=== PATIENT | female | born 1935 | race Caucasian/White ===

== ENCOUNTER 2016-05-16 14:37 | Inpatient (IN) ==
--- NOTE | 2016-05-16 15:15 | Emergency Department Note ---
Altered Mental Status HPI - General Chief Complaint: Altered Mental Status Stated Complaint: altered loc Time Seen by Provider: 05/16/16 14:59 Source: patient Mode of arrival: wheelchair Limitations: no limitations - History of Present Illness HPI Narrative: Brought in by son from home. 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 Did not answer the phone, son came and found her weak, unable to walk, altered mental status. Patient requested her usual daytime pills, and was given her chronic pain medications. Nothing out of the ordinary at home. No specific complaint. Was well on Monday when she was last seen. currently being cared for by wound, long laceration left leg; chronic edema of the legs reported Review of systems, patient denies fevers, denies shortness of breath or cough, denies abdominal complaints. Limited review of systems son is power of assistant prosecuting attorney; no advance directives - Related Data Home Medications Medication Instructions Recorded Confirmed Thyroid,Pork [[place] Thyroid] 180 mg PO ACB 01/23/16 04/29/16 Previous Rx's Medication Instructions Recorded Tums 300 mg (750 mg) chewable 300 mg PO TID PRN #30 tab NS 02/01/16 tablet polyethylene glycol 3350 17 gram 17 g PO QDAY #30 each 02/01/16 oral powder packet compression stocking,thigh See Dose Instructions .ROUTE 03/03/16 high,long length,large .MEDSUPPLY #2 each carisoprodol 350 mg tablet 350 mg PO TID PRN #90 tab 03/22/16 predniSONE [Prednisone] 10 mg PO DAILY #34 tab 04/08/16 albuterol sulfate HFA 90 2 puff INHALATION Q4-6HP PRN #1 04/18/16 mcg/actuation aerosol inhaler inhaler hydrocodone 7.5 mg-acetaminophen 1 tab PO Q4-6HP PRN #120 tab 05/10/16 325 mg tablet morphine ER 60 mg tablet,extended 60 mg PO Q8H PRN #75 tab 05/10/16 release furosemide 20 mg tablet 20 mg PO QDAY #30 tab 05/12/16 potassium chloride ER 20 mEq 20 meq PO QDAY #30 tab 05/12/16 tablet,extended release(part/cryst) Allergies Allergy/AdvReac Type Severity Reaction Status Date / Time tramadol [From ULTRAM] Allergy Intermediate HIVES Verified 12/30/16 15:55 mirtazapine [From REMERON] Allergy Mild JITTERY Verified 04/29/16 15:55 nicotine Allergy Unknown Hives Verified 04/29/16 15:55 ciprofloxacin [From Cipro] AdvReac Intermediate Unknown Verified 04/29/16 15:55 Review of Systems Limitations: ROS unobtainable due to patients medical condition Past Medical History - Past Medical History Attestation: Yes: The following information was validated with the patient. Medical history: Reports: arthritis, COPD, thyroid disease, other ( back pain, kyphosis, scoliosis, hx lumbar fracture, pelvic fracture) Surgical history ED: Reports: cholecystectomy Family history: Reports: non-contributory - Social History smoking status: Former smoker Alcohol use: Reports: Occasionally Drug use: Reports: none Physical Exam - General Limitations: no limitations General appearance: lethargic, other (thin, appears older than stated age) - Head Head exam: atraumatic - Eye Eye exam: Present: normal appearance - ENT ENT exam: mucous membranes dry - Neck Neck exam: Present: normal inspection. Absent: lymphadenopathy - Chest Chest inspection: Present: normal inspection - Respiratory Respiratory exam: Present: normal lung sounds bilaterally, other (shallow excursions, no tachypnea). Absent: respiratory distress - Cardiovascular Cardiovascular exam: Present: regular rate, normal rhythm - Abdominal Exam Abdominal exam: Present: soft. Absent: tenderness - Extremities Exam Extremities exam: Present: normal inspection - Back Exam Back exam: Present: normal inspection - Neurological Exam Neurological exam: Absent: alert - Skin Skin exam: Present: warm, dry Course - Reevaluation(s) Reevaluation #1: still profoundly weak, slow to respond; requesting a drink of water Son at the bedside, supportive of admission DNI DNR by discussion with POA, limited intervention Time: 18:20 Vital Signs Temperature 98.8 F 05/16/16 14:37 Pulse Rate 111 H 05/16/16 14:37 Respiratory Rate 26 H 05/16/16 14:37 Blood Pressure 161/103 05/16/16 14:37 Pulse Oximetry (%) 93 05/16/16 14:37 Temperature 99.1 F 05/16/16 16:26 Pulse Rate 107 H 05/16/16 16:56 Respiratory Rate 33 H 05/16/16 16:56 Blood Pressure 140/77 05/16/16 16:56 Pulse Oximetry (%) 94 05/16/16 16:56 Altered Mental Status - Lab Data Lab results reviewed: Yes I reviewed the patient's lab results. Result diagrams: 05/16/16 15:13 05/16/16 15:13 Lab Results 05/16/16 05/16/16 05/16/16 Range/Units 15:13 15:13 15:13 WBC 11.1 H (4.5-11.0) K/mcL RBC 4.40 (4.00-5.20) M/mcL Hgb 13.3 (12.0-15.0) g/dL Hct 40.7 (36.0-48.0) % MCV 92.5 (80.0-100.0) fL MCH 30.2 (26.0-34.0) pg MCHC 32.6 (31.0-36.0) g/dL RDW 16.2 H (11.5-14.5) % Plt Count 435 (140-440) K/mcL MPV 7.5 (7.4-10.4) fL Gran % 87.5 H (38.0-78.0) % Lymph % (Auto) 6.0 L (15.5-49.0) % [place] % (Auto) 6.3 (1.0-9.0) % Eos % (Auto) 0 (0.0-7.0) % Baso % (Auto) 0.2 (0.0-2.0) % Gran # 9.7 H (1.8-8.0) K/mcL Lymph # 0.7 L (1.5-4.8) K/mcL [place] # 0.7 (0.1-0.9) K/mcL Eos # 0 (0.0-0.7) K/mcL Baso # 0 (0.0-0.3) K/mcL VBG Lactic Acid 0.9 (0.5-2.2) mmol/L Sodium 133 (133-145) mmol/L Potassium 4.0 (3.3-5.1) mmol/L Chloride 92 L (96-108) mmol/L Carbon Dioxide 30 (22-30) mmol/L Anion Gap 11.0 (8-16) BUN 13 (8-23) mg/dl Creatinine 0.3 L (0.6-1.1) mg/dl GFR Calculation 110 Glucose 137 H (70-105) mg/dL Calcium 9.1 (8.6-10.4) mg/dl Total Bilirubin 0.4 (0.0-1.0) mg/dL AST 18 (0-37) U/l ALT 26 (0-40) U/l Alkaline Phosphatase 263 H (39-117) U/L Troponin T (0-0.03) ng/ml NT-Pro-B Natriuret Pep 424.5 (0-450) pg/ml Total Protein 6.2 (5.9-8.4) gm/dL Albumin 3.4 (3.2-5.2) gm/dL Globulin 2.8 (2.2-3.7) gm/dL Albumin/Globulin Ratio 1.2 (1.0-2.3) Urine Color Urine Appearance Urine pH (5.0-9.0) Ur Specific [place] (1.000-1.035) Urine Protein (NEG) mg/dL Urine Glucose (UA) (NEG) mg/dL Urine Ketones (NEG) mg/dL Urine Occult Blood (<0.03) mg/dL Urine Nitrate (NEG) Urine Bilirubin (NEG) mg/dL Urine Urobilinogen (NEG) mg/dL Ur Leukocyte Esterase (NEG) /uL Urine RBC (0-1) /hpf Urine WBC (0-4) /hpf Ur Squamous Epith Cells (0-4) /hpf Ur Transition Epith Cell (0-2) /hpf Urine Bacteria (0) /hpf Urine Mucus (0) /hpf Ur Culture Indicated? 05/16/16 05/16/16 Range/Units 15:13 16:22 WBC (4.5-11.0) K/mcL RBC (4.00-5.20) M/mcL Hgb (12.0-15.0) g/dL Hct (36.0-48.0) % MCV (80.0-100.0) fL MCH (26.0-34.0) pg MCHC (31.0-36.0) g/dL RDW (11.5-14.5) % Plt Count (140-440) K/mcL MPV (7.4-10.4) fL Gran % (38.0-78.0) % Lymph % (Auto) (15.5-49.0) % [place] % (Auto) (1.0-9.0) % Eos % (Auto) (0.0-7.0) % Baso % (Auto) (0.0-2.0) % Gran # (1.8-8.0) K/mcL Lymph # (1.5-4.8) K/mcL [place] # (0.1-0.9) K/mcL Eos # (0.0-0.7) K/mcL Baso # (0.0-0.3) K/mcL VBG Lactic Acid (0.5-2.2) mmol/L Sodium (133-145) mmol/L Potassium (3.3-5.1) mmol/L Chloride (96-108) mmol/L Carbon Dioxide (22-30) mmol/L Anion Gap (8-16) BUN (8-23) mg/dl Creatinine (0.6-1.1) mg/dl GFR Calculation Glucose (70-105) mg/dL Calcium (8.6-10.4) mg/dl Total Bilirubin (0.0-1.0) mg/dL AST (0-37) U/l ALT (0-40) U/l Alkaline Phosphatase (39-117) U/L Troponin T < 0.01 (0-0.03) ng/ml NT-Pro-B Natriuret Pep (0-450) pg/ml Total Protein (5.9-8.4) gm/dL Albumin (3.2-5.2) gm/dL Globulin (2.2-3.7) gm/dL Albumin/Globulin Ratio (1.0-2.3) Urine Color Yellow Urine Appearance Cloudy Urine pH 9.0 (5.0-9.0) Ur Specific [place] 1.014 (1.000-1.035) Urine Protein Neg (NEG) mg/dL Urine Glucose (UA) Negative (NEG) mg/dL Urine Ketones 5/tr A (NEG) mg/dL Urine Occult Blood Neg (<0.03) mg/dL Urine Nitrate Neg (NEG) Urine Bilirubin Neg (NEG) mg/dL Urine Urobilinogen Neg (NEG) mg/dL Ur Leukocyte Esterase Neg (NEG) /uL Urine RBC 1 (0-1) /hpf Urine WBC < 1 (0-4) /hpf Ur Squamous Epith Cells < 1 (0-4) /hpf Ur Transition Epith Cell < 1 (0-2) /hpf Urine Bacteria 0 (0) /hpf Urine Mucus Few (0) /hpf Ur Culture Indicated? No - Radiology Data Radiology results reviewed: Yes I reviewed the patient's radiology results. no clear infiltrate - EKG Data EKG attestation: Yes I reviewed and interpreted this EKG. EKG results narrative: borderline sinus tach Disposition Clinical Impression: Bronchopneumonia, Immunosuppressed status Altered mental status Qualifiers: Altered mental status type: delirium Qualified Code(s): R41.0 - Disorientation , unspecified Summary: no clear infiltrate, but consistent with pneumonia by clinical history and auscultation discussed with hospitalist, willing to admit Disposition: Xfer As Inpt ([facility]) Condition: Fair Referrals: Lito Goodwin MD [Primary Care Provider] -
[2016-05-16] MEDS ORDERED: 0.9 % SODIUM CHLORIDE 250 ML IV ONE (15:19)
[2016-05-16] MEDS: 0.9 % SODIUM CHLORIDE 1,000 ML IV SCH ×3 (15:21→22:55)
--- NOTE | 2016-05-16 15:25 | XRay Report ---
CLINICAL INFORMATION: Acute mental status change COMPARISON: 04/08/2016 FINDINGS: Heart is mildly enlarged, but stable. Mediastinum and pulmonary vessels are normal. COPD changes with interstitial fibrosis - predominantly in the mid and lower lung kemp is stable. No acute disease. No effusion. IMPRESSION: Moderate cardiomegaly COPD changes and mild interstitial fibrosis all stable. No acute findings Interpreted and Authenticated by: Izaiah Melo 05/16/16
[2016-05-16] MEDS ORDERED: 0.9 % SODIUM CHLORIDE 250 ML IV SCH (15:30)
[2016-05-16 15:55] LABS: Basophils # (Auto) 0 K/mcL (0.0-0.3); Basophils % (Auto) 0.2 % (0.0-2.0); Eosinophils # (Auto) 0 K/mcL (0.0-0.7); Eosinophils % (Auto) 0 % (0.0-7.0); Granulocytes % (Auto) 87.5 % (38.0-78.0); Lymphocytes # (Auto) 0.7 K/mcL (1.5-4.8); Mean Cell Volume 92.5 fL (80.0-100.0); Mean Corpuscular HGB Conc 32.6 g/dL (31.0-36.0); Mean Corpuscular Hemoglobin 30.2 pg (26.0-34.0); Monocytes # (Auto) 0.7 K/mcL (0.1-0.9); Monocytes % (Auto) 6.3 % (1.0-9.0); Platelet Count 435 K/mcL (140-440); Red Cell Distribution Width 16.2 % (11.5-14.5)
[2016-05-16] MEDS ORDERED: cefTRIAXone 1 GM in DEXTROSE 5% IN WATER 50 ML IV ONE (16:00)
[2016-05-16 16:16] LABS: proBNP 424.5 pg/ml (0-450)
[2016-05-16 16:20] LABS: ALT/SGPT 26 U/l (0-40); Albumin 3.4 gm/dL (3.2-5.2); Albumin/Globulin Ratio 1.2 (1.0-2.3); Alkaline Phosphatase 263 U/L (39-117); Blood Urea Nitrogen 13 mg/dl (8-23)
[2016-05-16 17:45] LABS: Appearance,Urine CLOUDY; Bacteria,Urine 0 /hpf (0); Bilirubin,Urine NEG (NEG); Color,Urine YELLOW; Glucose,Urine (UA) NEGATIVE (NEG); Leukocyte Esterase,Urine NEG /uL (NEG); Mucus,Urine FEW /hpf (0); Nitrate,Urine NEG (NEG); Protein,Urine NEG (NEG); Specific Gravity,Urine 1.014 (1.000-1.035); Urine Blood NEG mg/dL (<0.03); Urine RBC 1 /hpf (0-1); Urine Squamous Epithelial Cell < 1 /hpf (0-4); Urine Transitional Epi Cells < 1 /hpf (0-2); Urine WBC < 1 /hpf (0-4); Urobilinogen,Urine NEG (NEG)
[2016-05-16] MEDS ORDERED: HYDROCORTISONE SOD SUCC 100 MG VIAL IV ONE (18:13)
--- NOTE | 2016-05-16 20:44 | Internal Med History&Physical ---
Medical - H&P: HPI Patient information: Note initiated : 05/16/16 at 8:37 pm Service Date, if different from initiated Date: [] Patient: Nayeli Del Rosario a 80 y/o F admitted on 05/16/16 for altered loc. Chief Complaint: [] History of present illness: Ms. Del Rosario is a 80 year old female who lives independently, was brought in by the EMS for not feeling well, fatigue, altered mental status and dehydration. The patient lives by her self, her son called her over the her house and she did not answer, she as then found altered at her house and confused, her son therefore brought her in to the hospital In the ER the patient on my eval was much better oriented than what was for the ER physician. She noted that she has not been feeling well for the last 1 week, not eating well and just weak. She did not endorse any other complaints. I reviewed the ER workup, The ER did X ray chest which reports chr interstitial changes, CT head, reported negative, ABG showing resp alkalosis, and EKG nsr, her white count is elevated to 11K, an bmp neg, flu is negative, She had endorsed mild cough therefore admittiong diagnosis of pna was made. On my exam and chart review, it seems that the patient had some laceration on the left knee and chr wounds on the right lower extremity from hitting her WC The patients left knee appears not infected, however she does seem to have redness, increased warmth on the right ankle. It appears that cellutlitis rather than PNA is the primary issue here. The patients son who is a pharmacist at [employer] manages her medications, was there during end of the interview process, who agreed that patient has improved. The patient is Full code as reviewed with the patient and her son. Her son wants her to get more help, may be SNF for rehab. - Constitutional Constitutional: Present: fatigue, frequent falls, weakness. Absent: headache(s) - EENT Eyes: Absent: blurry vision, change in vision, decreased night vision, diplopia Nose, mouth and throat: Absent: change in voice, disequilibrium - Cardiovascular Cardiovascular: Absent: chest pain, chest pain at rest, lightheadedness, palpatations, pedal edema - Respiratory Respiratory: Present: cough. Absent: dyspnea, dyspnea on exertion, excessive phlegm production, change in phlegm color - Gastrointestinal Gastrointestinal: Absent: abdominal pain, hematochezia, melena, nausea, vomiting - Genitourinary Genitourinary: Absent: urinary frequency, urinary hesitancy, urinary incontinence, urinary urgency - Musculoskeletal Musculoskeletal: Present: arthralgias, back pain - Integumentary Integumentary: Present: erythema, wounds. Absent: rash, jaundice - Neurological Neurological: Present: frequent falls. Absent: dizziness, focal weakness, headache(s), syncope, vertigo - Psychiatric Psychiatric: Present: confusion. Absent: anxiety - Endocrine Endocrine: Absent: polydipsia, polyphagia, polyuria - Hematologic/Lymphatic Hematologic/Lymphatic: Absent: easy bleeding, easy bruising - Allergic/Immunologic Allergic/Immunologic: Absent: uticaria, wheezing Medical - H&P: H Medical history: Medical History Altered mental status (Acute) Bronchopneumonia (Acute) Immunosuppressed status (Acute) Laceration of left knee (Acute) Acute exacerbation of chronic obstructive airways disease (Chronic) Arthritis (Chronic) Articular cartilage disorder (Chronic) Bronchiolitis (Chronic) Bronchitis, acute (Chronic) Bronchitis, chronic (Chronic) Calcifying tendinitis of shoulder (Chronic) Candidiasis of mouth (Chronic) Cellulitis and abscess of leg (Chronic) Chronic obstructive pulmonary disease (Chronic) Fall (Chronic) Fatigue (Chronic) Hypokalemia (Chronic) Hypothyroidism, acquired (Chronic) Lymphedema (Chronic) Nondisplaced fracture of greater trochanter of right femur (Chronic) Pelvic rim fracture with routine healing (Chronic) Surgical history: Past Surgical History History of cholecystectomy (Chronic 01/10/13) Family history: reviewed and not pertinent Social history: lives by self smoker, 15 cigs a day no etoh no recreational drugs. Medical - H&P: Meds Home Medications Medication Instructions Recorded Confirmed Type Thyroid,Pork [[place] Thyroid] 180 mg PO ACB 01/23/16 05/16/16 History Allergies Allergy/AdvReac Type Severity Reaction Status Date / Time tramadol [From ULTRAM] Allergy Intermediate HIVES Verified 04/29/16 15:55 mirtazapine [From REMERON] Allergy Mild JITTERY Verified 04/29/16 15:55 nicotine Allergy Unknown Hives Verified 04/29/16 15:55 ciprofloxacin [From Cipro] AdvReac Intermediate Unknown Verified 04/29/16 15:55 Medical - H&P: Exam - Constitutional Vitals: Temp Pulse Resp BP Pulse Ox 99.1 F 69 27 H 144/70 99 05/16/16 16:26 05/16/16 19:56 05/16/16 19:56 05/16/16 19:56 05/16/16 19:56 General appearance: cooperative, no acute distress, thin - Head Head exam: Present: atraumatic, normal inspection - Eye Eye exam: Present: PERRL. Absent: periorbital swelling, periorbital tenderness , scleral icterus - ENT ENT exam: Present: mucous membranes dry - Neck Neck exam: Present: normal inspection - Expanded Neck Exam Neck exam: Absent: tenderness - Respiratory Respiratory exam: Present: normal respiratory exam. Absent: accessory muscle use, chest wall tenderness, stridor, wheezes Additional comments: tachypnea - Cardiovascular Cardiovascular exam: Present: normal rate and rhythm, +S1, +S2, tachycardia - GI/Abdominal GI/Abdominal exam: Present: normal bowel sounds, soft. Absent: organomegaly, rigid, tenderness - Extremities Exam Extremities exam: Present: Foot pink and warm Additional comments: right leg, in the ankle has several breaks in the skin,erythema, warm to touch, and edema, extents from garrett mid foot to the lower 1/3 of the leg., there is no e /o loculations The right leg, was wrapped in the compression bandage, on the knee approx 10-12 cms irregular tear of the skin, dry wound, no erythema, or pus, appears to be healing with secondary intention. - Neurological Exam Neurological exam: Present: alert, CN II-XII intact. Absent: motor sensory deficit Additional comments: aoox self, place, month, season, but not to year, which is much better than her mentation at presentation. - Psychiatric Psychiatric exam: Absent: agitated, anxious - Skin Skin exam: Present: erythema (right leg), normal color, warm. Absent: cyanosis Medical - H&P: Reslt - Labs CBC & Chem 7: 05/16/16 15:13 05/16/16 15:13 - ABG Interpretation -: ABG interpreted by me Interpretation: respiratory alkalosis - EKG Data -: EKG Reviewed by Myself EKG shows normal: sinus rhythm - EKG Data Prior EKG available for review: no Interpretation: normal EKG Medical - H&P: A/P (1) Sepsis Current visit: Yes Status: Acute (2) Cellulitis and abscess of foot excluding toe Current visit: Yes Status: Acute (3) Chronic pain Current visit: Yes Status: Acute (4) Bronchopneumonia Current visit: Yes Status: Acute (5) Laceration Current visit: No Status: Acute (6) Hypothyroidism, acquired Current visit: No Status: Chronic - Narrative A/P Narrative: Patient presents with cellulitis, Tachycardia, Tachyphemia, Altered mental status, elevated wbc to 11K with left shift, Flu is neg The patient is admitted to the hospital for sepsis, secondary to cellutlitis, Culture sent in the ER, Fluids given in ER, will start on VAncomycin and zosyn, IV fluids. monitor on telemetery Patient X ray is concerning for fibrotic changes, these seem to be only there on the last 2 x rays, it would be worth while to have a CT cary of the Chest done as a outpatient for further evaluation reg with her history of smoking. Hypothyroidism resume her home meds Chr pain due to OA, on high does of narcotics, morphine/ hydrocodone, also takes muscle relaxants, will resume home dosing to avoid withdrawal. SOn manages her pain meds at home. DVT hep sq Diet regular OT/ PT / Case management / ST eval Prognosis- Guarded. Code full
[2016-05-16] MEDS ORDERED: VANCOMYCIN PER PHARMACY IV ONE (20:48)
[2016-05-16] MEDS ORDERED: SENNOSIDES 1 TABLET PO PRN (20:48)
[2016-05-16] MEDS ORDERED: BISACODYL 5 MG TABLET PO PRN (20:48)
[2016-05-16] MEDS ORDERED: ACETAMINOPHEN 325 MG TABLET PO PRN (20:48)
[2016-05-16] MEDS ORDERED: ONDANSETRON 4 MG/2 ML VIAL IV PRN (20:48)
[2016-05-16] MEDS ORDERED: FLEETS ADULT ENEMA PR PRN (20:48)
[2016-05-16] MEDS ORDERED: NALOXONE HCL 0.4 MG/ML VIAL IV PRN (20:48)
[2016-05-16] MEDS ORDERED: PROMETHAZINE 25 MG/ML VIAL IV PRN (20:48)
[2016-05-16] MEDS ORDERED: VANCOMYCIN 1,000 MG in 0.9 % SODIUM CHLORIDE 250 ML IV ONE (20:48)
[2016-05-16] MEDS: IPRATROPIUM/ALBUTEROL 3 ML AMPUL.NEB NEB SCH (22:10)
[2016-05-16] MEDS ORDERED: VANCOMYCIN 500 MG VIAL ONE (22:31)
[2016-05-16] MEDS: morphine 30 MG TAB.SR.12H PO SCH (22:36)
[2016-05-16] MEDS: HEPARIN 5,000 UNIT/ML VIAL SQ SCH (22:38)
[2016-05-16] MEDS: PIPERACILLIN SODIUM/TAZOBACTAM 3.375 GM in DEXTROSE 5% IN WATER 50 ML IV SCH (22:46)
[2016-05-16] MEDS ORDERED: PIPERACILLIN SODIUM/TAZOBACTAM 3.375 GM VIAL IV ONE (22:53)
[2016-05-17] MEDS ORDERED: PIPERACILLIN SODIUM/TAZOBACTAM 3.375 GM VIAL IV ONE ×2 (02:26→05:58)
[2016-05-17] MEDS: IPRATROPIUM/ALBUTEROL 3 ML AMPUL.NEB NEB SCH ×4 (02:35→15:19)
[2016-05-17] MEDS: HYDROCODONE/APAP 7.5/325MG TABLET PO PRN ×3 (03:08→18:01)
[2016-05-17] MEDS: PIPERACILLIN SODIUM/TAZOBACTAM 3.375 GM in DEXTROSE 5% IN WATER 50 ML IV SCH ×3 (05:54→17:58)
[2016-05-17] MEDS: morphine 30 MG TAB.SR.12H PO SCH ×3 (05:56→21:49)
[2016-05-17] MEDS ORDERED: THYROID, PORK 60 MG TABLET PO SCH (07:30)
--- NOTE | 2016-05-17 07:59 | Cat Scan Report ---
CLINICAL INFORMATION: Acute mental status change COMPARISON: None. TECHNIQUE: 2.5 mm helical slices were obtained in the skull base to vertex. Following reconstruction, axial reformatted images were reviewed at bone and parenchymal windows. FINDINGS: The ventricles, sulci, fissures, and cisterns are symmetrically enlarged compatible with mild atrophy-no subdural hemorrhage or extra-axial fluid collection appreciated. There is a small cortical-based remote infarct in the left occipital lobe. Moderate patchy chronic ischemic changes in the cerebral white matter are appreciated. There is no acute cerebral hemorrhage, edema, mass effect or other acute finding IMPRESSION: Mild atrophy and chronic ischemic changes in the deep cerebral white matter-typical for age. 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 No acute findings. Interpreted and Authenticated by: Izaiah Melo 05/17/16
[2016-05-17] MEDS: 0.9 % SODIUM CHLORIDE 1,000 ML IV SCH ×3 (09:12→14:19)
[2016-05-17] MEDS: HEPARIN 5,000 UNIT/ML VIAL SQ SCH ×2 (09:12→21:50)
--- NOTE | 2016-05-17 10:13 | Internal Med Progress Note ---
Medical - PN: Subj Patient information: Note initiated : 05/17/16 at 10:09 am Service Date, if different from initiated Date: [] Patient: Nayeli Del Rosario 80 y/o F admitted on 05/16/16 for altered loc. Chief Complaint: [] Interval history: patient seen examined this AM on rounds overnight events noted pt is on liquid diet, wants to eat regular food, ok to advance, Pt mrsa positive on nasal swab, on contact isolation . The patient still complains of pain, in the right knee which she feels is wrapped too tightly. Othewise doing well VS reviwed, microbiology, vitals overnigh events reviewed. some question regarding code status, nurse has a DNR / DNI signed, in the notes , but on my eval yesterday with the son, it was full code, will clarify later with family and patient, full code for now. Pertinent ROS: Denies headache, dizziness Denies chest pain, palpitations Denies cough or shortness of breath Denies abdominal pain, nausea or vomiting. - Constitutional Vitals: Vital Signs Temp Pulse Resp BP Pulse Ox 98.1 F 89 20 129/80 96 05/17/16 08:00 05/17/16 08:53 05/17/16 08:53 05/17/16 08:00 05/17/16 08:53 Period Temp Pulse Resp BP Sys/Ash Pulse Ox Last 24 Hr 98.1 F-99.4 F 83-91 18-22 127-145/76-89 94-99 Intake and Output 05/16/16 05/17/16 05/17/16 21:59 05:59 13:59 Intake Total 1500 / 1500 Output Total 550 / 550 Balance 950 / 950 Weight 90 lb 14.4 oz Intake & Output: Intake & Output 05/16/16 05/17/16 05/17/16 21:59 05:59 13:59 Intake Total 1500 / 1500 Output Total 550 / 550 Balance 950 / 950 Weight 90 lb 14.4 oz Intake: IV 300 / 300 Dextrose 5% in Water 50 50 / 50 ml @ 100 mls/hr IV Q6H ZACKERY with Zosyn 3.375 gm Rx#:[id number] Sodium Chloride 0.9% 250 250 / 250 ml @ 250 mls/hr IV ONCE ONE with Vancomycin 1,000 mg Rx#:[id number] Oral 1200 / 1200 Output: Void Amount 550 / 550 Other: Meal arrival meal Percent of Meal Consumed 50% # Voids 1 - Head Head exam: Present: atraumatic, normal inspection, normocephalic - Eye Eye exam: Present: PERRL. Absent: periorbital swelling, periorbital tenderness , scleral icterus - ENT ENT exam: Present: mucous membranes moist - Respiratory Respiratory exam: Present: normal respiratory exam. Absent: accessory muscle use, rhonchi, stridor, wheezes - Cardiovascular Cardiovascular exam: Present: normal rate and rhythm, +S1, +S2 - GI/Abdominal GI/Abdominal exam: Present: normal bowel sounds, soft - Extremities Exam Additional comments: righ lower extremity still erythematous, but better, meplex applied left lowe extremity in bandage. wound care eval awaited. - Neurological Exam Neurological exam: Present: alert, CN II-XII intact, oriented X3 Medical - PN: Obj Da - Labs CBC & Chem 7: 05/16/16 15:13 05/16/16 15:13 Meds: Medications Acetaminophen (Tylenol) 650 mg PO Q6HP PRN PRN Reason: PAIN/FEVER > 101 Acetaminophen/Hydrocodone Bitart (Bertrand 7.5/325mg) 1 tab PO Q4-6HP PRN PRN Reason: Pain Last Admin: 05/17/16 09:47 Dose: 1 tab Albuterol/Ipratropium (Duoneb) 3 ml NEB Q4HRT [facility] Last Admin: 05/17/16 08:06 Dose: 3 ml Bisacodyl (Dulcolax) 10 mg PO DAILYP PRN PRN Reason: Constipation Heparin Sodium (Porcine) (Heparin) 5,000 unit SQ Q12 [facility] Last Admin: 05/17/16 09:12 Dose: 5,000 unit Sodium Chloride (Sodium Chloride 0.9%) 1,000 mls @ 75 mls/hr IV .[id number] [facility] Last Admin: 05/17/16 09:12 Dose: Not Given Piperacillin Sod/Tazobactam (Sod 3.375 gm/ Dextrose) 50 mls @ 100 mls/hr IV Q6H [facility] Last Admin: 05/17/16 05:54 Dose: Not Given Vancomycin HCl 1,000 mg/ (Sodium Chloride) 250 mls @ 250 mls/hr IV Q24H [facility] Morphine Sulfate (Ms Contin) 60 mg PO Q8 [facility] Last Admin: 05/17/16 05:56 Dose: 60 mg Naloxone HCl (Narcan) 0.1 mg IV Q2MIN PRN PRN Reason: Opiate Reversal Ondansetron HCl (Zofran) 4 mg IV Q4HP PRN PRN Reason: Nausea And Vomiting Promethazine HCl (Phenergan) 12.5 mg IV Q6HP PRN PRN Reason: Nausea And Vomiting Senna (Senokot) 2 tab PO HSP PRN PRN Reason: Constipation Sodium Biphosphate/Sodium Phosphate (Fleets Adult) 1 dose WA Q3DP PRN PRN Reason: Constipation Thyroid (Thyroid) 180 mg PO ACB [facility] Last Admin: 05/17/16 08:15 Dose: 180 mg Medical - PN: A/P - Time Spent With Patient Total time spent is greater than 50% in coordination of care (as documented) at patient's floor/unit and/or counseling patient: (1) Sepsis Status: Acute Assessment and plan: Improving clinically due to cellutlitis IV ABX, IV fluids, monitor STable to be transferred to [facility] surg status. Current Visit: Yes (2) Cellulitis and abscess of foot excluding toe Status: Acute Assessment and plan: On IV vanco, and zosyn Awaiting cultures will descalate based on cultures Current Visit: Yes (3) Chronic pain Status: Acute Assessment and plan: Has issues with using excess pain meds, son manages pain meds Will continue home dosing. Current Visit: Yes (4) Bronchopneumonia Status: Acute Assessment and plan: Unlikely has pna, but on broad spectrum aBX anyways Current Visit: Yes (5) Laceration Status: Acute Assessment and plan: leg wound on the left knee await wound care eval. Current Visit: No - Narrative A/P Narrative: DVT hep DIET regular Medical - PN: Qual - VTE Deep Vein Thrombosis/Pulmonary Embolism Present on Admission: No
[2016-05-17] MEDS ORDERED: ONDANSETRON 4 MG/2 ML VIAL IV PRN (10:51)
[2016-05-17] MEDS ORDERED: FLEETS ADULT ENEMA PR PRN (10:51)
[2016-05-17] MEDS ORDERED: SENNOSIDES 1 TABLET PO PRN (10:51)
[2016-05-17] MEDS ORDERED: ACETAMINOPHEN 325 MG TABLET PO PRN (10:51)
[2016-05-17] MEDS ORDERED: BISACODYL 5 MG TABLET PO PRN (10:51)
[2016-05-17] MEDS ORDERED: PROMETHAZINE 25 MG/ML VIAL IV PRN (10:51)
[2016-05-17] MEDS ORDERED: NALOXONE HCL 0.4 MG/ML VIAL IV PRN (10:51)
[2016-05-17 10:57] LABS: Vancomycin,Random 5.8 ug/ml
[2016-05-17] MEDS ORDERED: CALCIUM CARBONATE 500 MG TAB.CHEW CHEWED PRN (11:57)
[2016-05-17] MEDS ORDERED: IPRATROPIUM/ALBUTEROL 3 ML AMPUL.NEB NEB PRN (15:23)
[2016-05-17] MEDS: CARISOPRODOL 350 MG TABLET PO PRN (18:04)
[2016-05-17] MEDS ORDERED: VANCOMYCIN 1,000 MG in 0.9 % SODIUM CHLORIDE 250 ML IV SCH (21:00)
[2016-05-17] MEDS: VANCOMYCIN 1,000 MG in 0.9 % SODIUM CHLORIDE 250 ML IV SCH (21:57)
[2016-05-18] MEDS: CARISOPRODOL 350 MG TABLET PO PRN ×3 (00:10→17:32)
[2016-05-18] MEDS: PIPERACILLIN SODIUM/TAZOBACTAM 3.375 GM in DEXTROSE 5% IN WATER 50 ML IV SCH ×5 (00:10→23:40)
[2016-05-18] MEDS: HYDROCODONE/APAP 7.5/325MG TABLET PO PRN ×3 (00:11→17:32)
[2016-05-18] MEDS: morphine 30 MG TAB.SR.12H PO SCH ×3 (06:06→23:43)
[2016-05-18 06:17] LABS: Basophils # (Auto) 0 K/mcL (0.0-0.3); Basophils % (Auto) 0.1 % (0.0-2.0); Eosinophils # (Auto) 0 K/mcL (0.0-0.7); Eosinophils % (Auto) 0.2 % (0.0-7.0); Granulocytes % (Auto) 78.9 % (38.0-78.0); Lymphocytes # (Auto) 1.1 K/mcL (1.5-4.8); Lymphocytes % (Auto) 12.5 % (15.5-49.0); Mean Cell Volume 93.8 fL (80.0-100.0); Mean Corpuscular HGB Conc 32.4 g/dL (31.0-36.0); Mean Corpuscular Hemoglobin 30.3 pg (26.0-34.0); Monocytes # (Auto) 0.8 K/mcL (0.1-0.9); Monocytes % (Auto) 8.3 % (1.0-9.0); Platelet Count 350 K/mcL (140-440); RBC 3.78 M/mcL (4.00-5.20); Red Cell Distribution Width 16.5 % (11.5-14.5)
[2016-05-18] MEDS: THYROID, PORK 60 MG TABLET PO SCH (07:23)
[2016-05-18] MEDS: 0.9 % SODIUM CHLORIDE 1,000 ML IV SCH (07:32)
[2016-05-18 07:39] LABS: ALT/SGPT 110 U/l (0-40); Albumin 2.8 gm/dL (3.2-5.2); Albumin/Globulin Ratio 1.2 (1.0-2.3); Alkaline Phosphatase 371 U/L (39-117); Bilirubin,Direct < 0.2 mg/dL (0.0-0.3); Blood Urea Nitrogen 11 mg/dl (8-23); Gamma Glutamyl Transpeptidase 305 U/L (5-36); Magnesium 1.7 mg/dL (1.6-2.5); Uric Acid 1.4 mg/dL (2.5-8.0)
--- NOTE | 2016-05-18 11:04 | Internal Med Progress Note ---
Medical - PN: Subj Patient information: Note initiated : 05/18/16 at 10:56 am Service Date, if different from initiated Date: [] Patient: Nayeli Del Rosario 80 y/o F admitted on 05/16/16 for Altered LOC/Sepsis, Cellulitis. Chief Complaint: [] Interval history: The patient seen examined no acute overnight event,s This am the nursing told me regarding a error in the patients medication admistration The patient received medications meant for another patient. She received guaifenacin (cough medication), po azithromycin, Lovenox 40mg sq for dvt prophylaxis and Tamiflu. I discussed this with the patient son and apologized to him for our mistake, the nurse involved with this will be informing the patient and apologizing to the patient, an incident report will be filed by the nurse. Nursing yard general car supervisor on the floor aware. I do not expect any adverse reactions due to the medications adminstered, nonethe less will montir. I have advised the nurse to hold the evening dose of heparin sq for this patient. The patients othewise is feeling good, no new concerns. I reviewed the discharge plan with the son and the patient, apparently pt wants to go home and has home health / and her niece helping her out. This AM the patients blood test for liver were abnormal, her AST/ ALT jumped up by nearly 5 times, her alk phos increased. The patient eagle is normal she is asymptomatic I got a usg liver usg, which shows dilated cbd, which is worse from the recent liver usg. I reviewed the previous CT Scans and the Ultrasound with radiology, it appears that the patients CBD has been progressively gettign dilated and there has not been e/o stones or strictures. The patients LFt however have never been this abnl. I discussed the case with Dr aGleas, who advised to get an MRCP for the patient, Keep Pt NPO, and then based on the findings of the MRCP further plan will be decided. Pertinent ROS: Denies headache, dizziness Denies chest pain, palpitations Denies cough or shortness of breath Denies abdominal pain, nausea or vomiting. Additional PMFSH (Level 3 Only): reviewed pmh/ psh h/o progressively dilating cbd h/o cholecystectomy - Constitutional Vitals: Vital Signs Temp Pulse Resp BP Pulse Ox 98.5 F 72 16 168/76 94 05/18/16 07:05 05/18/16 07:05 05/18/16 07:05 05/18/16 07:05 05/18/16 07:43 Period Temp Pulse Resp BP Sys/Ash Pulse Ox Last 24 Hr 97.6 F-98.5 F 72-85 16-20 142-168/71-90 91-96 Intake and Output 05/17/16 05/18/16 05/18/16 21:59 05:59 13:59 Intake Total 150 / 150 1200 / 1200 600 / 600 Balance 150 / 150 1200 / 1200 600 / 600 Weight 94 lb 8 oz Intake & Output: Intake & Output 05/17/16 05/18/16 05/18/16 21:59 05:59 13:59 Intake Total 150 / 150 1200 / 1200 600 / 600 Balance 150 / 150 1200 / 1200 600 / 600 Weight 94 lb 8 oz Intake: IV 50 / 50 1050 / 1050 Sodium Chloride 0.9% 1, 1000 / 1000 000 ml @ 75 mls/hr IV . [id number] [facility] Rx#:[id number] Dextrose 5% in Water 50 50 / 50 50 / 50 ml @ 100 mls/hr IV Q6H [facility] with Zosyn 3.375 gm Rx#:[id number] Oral 100 / 100 150 / 150 600 / 600 Other: Meal Breakfast Percent of Meal Consumed 50% Feeding Ability Assist with Tray Set Up # Voids 1 1 - Head Head exam: Present: atraumatic, normal inspection - Eye Eye exam: Present: PERRL. Absent: periorbital swelling, periorbital tenderness , scleral icterus - Neck Neck exam: Present: normal inspection - Respiratory Respiratory exam: Present: normal respiratory exam. Absent: accessory muscle use, stridor, wheezes - Cardiovascular Cardiovascular exam: Present: normal rate and rhythm, +S1, +S2 - GI/Abdominal GI/Abdominal exam: Present: normal bowel sounds, soft. Absent: rigid, tenderness - Neurological Exam Neurological exam: Present: alert, CN II-XII intact, oriented X3. Absent: motor sensory deficit - Psychiatric Psychiatric exam: Absent: agitated, anxious Medical - PN: Obj Da - Labs CBC & Chem 7: 05/18/16 04:15 05/18/16 04:15 Labs: Abnormal Lab Results 05/18/16 05/18/16 04:15 04:15 RBC 3.78 L Hgb 11.5 L Hct 35.5 L RDW 16.5 H Gran % 78.9 H Lymph % (Auto) 12.5 L Lymph # 1.1 L Chloride 95 L Creatinine 0.3 L Glucose 123 H Uric Acid 1.4 L Calcium 8.1 L GGT 305 H AST 104 H ALT 110 H Alkaline Phosphatase 371 H Total Protein 5.1 L Albumin 2.8 L Meds: Medications Acetaminophen (Tylenol) 650 mg PO Q6HP PRN PRN Reason: PAIN/FEVER > 101 Acetaminophen/Hydrocodone Bitart ([place] 7.5/325mg) 1 tab PO Q4-6HP PRN PRN Reason: Pain Last Admin: 05/18/16 00:11 Dose: 1 tab Albuterol/Ipratropium (Duoneb) 3 ml NEB PRN PRN PRN Reason: Wheezing Bisacodyl (Dulcolax) 10 mg PO DAILYP PRN PRN Reason: Constipation Calcium Carbonate/Glycine (Tums) 300 mg CHEWED TIDP PRN PRN Reason: Indigestion Last Admin: 05/17/16 12:16 Dose: 300 mg Carisoprodol (Soma) 350 mg PO TIDP PRN PRN Reason: Muscle Spasm Last Admin: 05/18/16 00:10 Dose: 350 mg Heparin Sodium (Porcine) (Heparin) 5,000 unit SQ Q12 [facility] Last Admin: 05/17/16 21:50 Dose: 5,000 unit Piperacillin Sod/Tazobactam (Sod 3.375 gm/ Dextrose) 50 mls @ 100 mls/hr IV Q6H [facility] Last Admin: 05/18/16 06:06 Dose: 100 mls/hr Vancomycin HCl 1,000 mg/ (Sodium Chloride) 250 mls @ 250 mls/hr IV Q24H [facility] Last Admin: 05/17/16 21:57 Dose: 150 mls/hr Morphine Sulfate (Ms Contin) 60 mg PO Q8 [facility] Last Admin: 05/18/16 06:06 Dose: 60 mg Naloxone HCl (Narcan) 0.1 mg IV Q2MIN PRN PRN Reason: Opiate Reversal Ondansetron HCl (Zofran) 4 mg IV Q4HP PRN PRN Reason: Nausea And Vomiting Promethazine HCl (Phenergan) 12.5 mg IV Q6HP PRN PRN Reason: Nausea And Vomiting Senna (Senokot) 2 tab PO HSP PRN PRN Reason: Constipation Sodium Biphosphate/Sodium Phosphate (Fleets Adult) 1 dose [place] Q3DP PRN PRN Reason: Constipation Thyroid (Thyroid) 180 mg PO ACB [facility] Last Admin: 05/18/16 07:23 Dose: 180 mg Medical - PN: A/P - Time Spent With Patient Total time spent is greater than 50% in coordination of care (as documented) at patient's floor/unit and/or counseling patient: Greater than 35 minutes (1) Sepsis Status: Acute Assessment and plan: due to cellutlitis resolved sepsis . Current Visit: Yes (2) Cellulitis and abscess of foot excluding toe Status: Acute Assessment and plan: On IV vanco, and zosyn continue same for now inlight of dialted cbd descalate at time of D/c microbiology neg so far. Current Visit: Yes (3) Chronic pain Status: Acute Assessment and plan: Has issues with using excess pain meds, son manages pain meds Will continue home dosing. Current Visit: Yes (4) Laceration Status: Acute Assessment and plan: leg wound on the left knee, healing well, not infected. Current Visit: No (5) Elevated LFTs Status: Acute Assessment and plan: elevated lft dialted cbc papiplar tumor, stricuture or stenosis or stone get MRCP today ERCP later in the day based on the findings of the MRCP may need EBUS which cannot be done here. IF LFT trends upwards, will ahve to jamel hammer. Current Visit: Yes Medical - PN: Qual - VTE Deep Vein Thrombosis/Pulmonary Embolism Present on Admission: No
[2016-05-18] MEDS: HEPARIN 5,000 UNIT/ML VIAL SQ SCH ×2 (11:32→21:09)
[2016-05-18] MEDS ORDERED: IOVERSOL IJ PRN (12:19)
[2016-05-18] MEDS: VANCOMYCIN 1,000 MG in 0.9 % SODIUM CHLORIDE 250 ML IV SCH (12:52)
--- NOTE | 2016-05-18 15:36 | Ultrasound Report ---
CLINICAL INFORMATION: Increasing LFTs COMPARISON: Abdominal ultrasound from two months prior - 03/14/2016 FINDINGS: The gallbladder is surgically absent. Intrahepatic and common bile ducts are moderately dilated: the common bile duct caliber has increased from 13 mm (on the study two months prior) to 15 mm on today's exam. Pancreas is grossly normal. The liver is diffusely hyperechoic compatible with fatty change, but no focal hepatic lesion. Small of free fluid noted. IMPRESSION: 1. Marked dilatation of the common bile duct which has increased in caliber from a comparison study two months prior. This could represent papillary stenosis, an occult common bile duct stone or ampullary tumor. Suggest abdominal MRI/MRCP Interpreted and Authenticated by: Izaiah Melo 05/18/16
[2016-05-18] MEDS ORDERED: PROPOFOL 200 MG/20 ML VIAL IV SCH (16:00)
[2016-05-18] MEDS ORDERED: GLUCAGON,HUMAN RECOMBINANT 1 MG VIAL IV PRN (16:00)
[2016-05-18] MEDS ORDERED: MIDAZOLAM 2 MG/2 ML VIAL IV SCH (16:00)
[2016-05-18] MEDS ORDERED: MIDAZOLAM 2 MG/2 ML VIAL ONE (16:11)
[2016-05-18] MEDS ORDERED: PROPOFOL 0 ML IV ONE (16:11)
[2016-05-18] MEDS ORDERED: GLUCAGON,HUMAN RECOMBINANT 1 MG VIAL ONE (16:12)
[2016-05-18] MEDS ORDERED: POLYETHYLENE GLYCOL 3350 17 GM PACKET PO ONE (21:16)
[2016-05-19] MEDS: HYDROCODONE/APAP 7.5/325MG TABLET PO PRN ×3 (02:55→17:36)
[2016-05-19] MEDS: CARISOPRODOL 350 MG TABLET PO PRN ×3 (02:57→17:36)
[2016-05-19 05:32] LABS: Basophils # (Auto) 0 K/mcL (0.0-0.3); Basophils % (Auto) 0.4 % (0.0-2.0); Eosinophils # (Auto) 0.1 K/mcL (0.0-0.7); Eosinophils % (Auto) 1.1 % (0.0-7.0); Granulocytes % (Auto) 78.6 % (38.0-78.0); Lymphocytes # (Auto) 0.6 K/mcL (1.5-4.8); Lymphocytes % (Auto) 9.1 % (15.5-49.0); Mean Cell Volume 93.6 fL (80.0-100.0); Mean Corpuscular HGB Conc 32.3 g/dL (31.0-36.0); Mean Corpuscular Hemoglobin 30.2 pg (26.0-34.0); Monocytes # (Auto) 0.8 K/mcL (0.1-0.9); Monocytes % (Auto) 10.8 % (1.0-9.0); Platelet Count 333 K/mcL (140-440); RBC 3.82 M/mcL (4.00-5.20); Red Cell Distribution Width 16.5 % (11.5-14.5)
[2016-05-19 05:51] LABS: ALT/SGPT 142 U/l (0-40); Albumin 2.7 gm/dL (3.2-5.2); Albumin/Globulin Ratio 1.2 (1.0-2.3); Alkaline Phosphatase 345 U/L (39-117); Bilirubin,Direct 0.3 mg/dL (0.0-0.3); Blood Urea Nitrogen 8 mg/dl (8-23); Gamma Glutamyl Transpeptidase 301 U/L (5-36); Magnesium 1.7 mg/dL (1.6-2.5); Uric Acid 1.4 mg/dL (2.5-8.0)
[2016-05-19] MEDS: morphine 30 MG TAB.SR.12H PO SCH ×3 (05:54→21:11)
[2016-05-19] MEDS: PIPERACILLIN SODIUM/TAZOBACTAM 3.375 GM in DEXTROSE 5% IN WATER 50 ML IV SCH (05:56)
--- NOTE | 2016-05-19 07:34 | Magnetic Resonance Report ---
CLINICAL INFORMATION: Elevated liver function tests. Common bile duct dilatation on ultrasound COMPARISON: Abdomen CT from 07/19/2015. TECHNIQUE: Axial SSFSE, T2, T2 FSE, coronal SSFSE images were obtained through the upper abdomen. 3-D SPGR technique was used to create MRCP images FINDINGS: Small bilateral pleural effusions are appreciated. There is subsegmental atelectasis in the posterior medial left lower lobe. Images through the abdomen show the liver is normal in size, configuration and signal intensity. No focal hepatic lesion. There is moderate dilatation of the intrahepatic, common hepatic and common bile ducts. The intrapancreatic common bile duct is 14 mm - unchanged since the comparison CT 10 months ago. There is no evidence of stone or mass either within the duct or in the periampullary region. The pancreas is normal in size, configuration and signal intensity. Wirsung's' portion of the pancreatic duct is poorly visualized, but the remaining pancreatic duct is grossly normal. A 20 mm simple cyst anterior cortex mid left kidney is stable. No significant renal abnormality. The adrenal glands, spleen and aorta are normal. A small amount of free intraperitoneal fluid is appreciated. No free air. The stomach and visualized small/large bowel are grossly normal. There is mild intracavitary edema within the subcutaneous fat of the abdomen. IMPRESSION: 1. 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 There is no stone, mass or other focal pathology which would account for distal common bile duct obstruction. The bile ducts, although dilated, are unchanged in caliber from a CT 10 months ago 2. 20 mm cyst in the anterior left kidney - stable 3. Small amount of ascites Interpreted and Authenticated by: Izaiah Melo 05/19/16
[2016-05-19] MEDS: THYROID, PORK 60 MG TABLET PO SCH (08:08)
--- NOTE | 2016-05-19 08:25 | Consultation ---
DATE OF CONSULTATION: 05/18/2016 DICTATED AND CONSULT DONE ON: 05/18/2016 HISTORY: Ms. Del Rosario is a 80-year-old white female for whom GI consultation was requested regarding an increase of liver chemistries lately, along with dilated common bile duct. There is a question of whether the patient should undergo an ERCP. HISTORY OF PRESENT ILLNESS: The patient is a 80-year-old white female who was admitted to the hospital with mental status changes and/or lethargy. She was experiencing general malaise and fatigue with altered mental status and dehydration. She lives alone and could not be contacted by her family, so they investigated and found her doing poorly at home. She was brought to the emergency room with a question of possible pneumonia based on a cough, but further evaluation identified cellulitis of the lower extremities thought to be the cause of her clinical decline at home. She has been started on vancomycin and Zosyn, and her mental status has improved markedly. During the admission, her liver chemistries have been observed to elevate in the last couple of days. On 05/16/2016, total bilirubin was 0.4 with AST 18 and ALT 26. Alkaline phosphatase was elevated at 263. In fact, I have looked over the past medical records and laboratory data and find that her alkaline phosphatase has ranged roughly in the 200 to 400 range in the last 3 years. She had a cholecystectomy performed, I believe for symptomatic stone back in 2012. In any event, today on 05/18/2016 her total bilirubin is still normal at 0.2, but the AST went up to 104, ALT 110, and alkaline phosphatase up to 371. The patient specifically denies any abdominal pain. She has no itching. No vomiting. She denies fever at home. Basically I can elicit no GI complaints that would be consistent with biliary colic going back to the time when she had her gallbladder removed 3 or 4 years ago. An ultrasound of the abdomen was performed on 05/18/2016 showing marked dilatation of the common bile duct, which has increased from a comparison study a couple of months earlier. There was a question of whether she may have papillary stenosis, an occult common bile duct stone, ampullary tumor, etc. MRCP was suggested. The gallbladder is surgically absent. The pancreas was grossly normal. The liver appears diffusely hyperechoic consistent with fatty liver but no focal lesion. I should also note that this patient has chronic back pain related to scoliosis going back several decades. She has also had fractures and falls, and she is on a combination of pain medications that include Soma, hydrocodone and MS Contin taken regularly for a number of years. PAST MEDICAL HISTORY: Includes COPD. She has a [id number] smoking history, having quit cigarettes only about 3 months ago. She has chronic arthritis, especially of her back. She has frequent falls at home. Most recently she sustained a pelvic rim fracture within recent weeks. She has a nondisplaced fracture of her greater trochanter of the right femur. PAST SURGICAL HISTORY: Cholecystectomy in I believe 2012. FAMILY HISTORY: Noncontributory. SOCIAL HISTORY: She had been smoking up to 2 packs a day but has stopped smoking 3 months ago. No alcohol. She lives alone. I believe a son lives nearby. MEDICATIONS: Mentioned above. ALLERGIES: Include TRAMADOL, MIRTAZAPINE, NICOTINE, and CIPRO. PHYSICAL EXAMINATION: VITAL SIGNS: Temperature 97.8 degrees, pulse 73, respiration 20, blood pressure 140/78. GENERAL: The patient is awake and alert. She ambulates with great difficulty and cautiously. She has limited mobility, most related to her back and hip pain. LUNGS: Her lungs are clear but with decreased breath sounds bilaterally. SKIN: Without stigmata of chronic liver disease. CARDIAC: Regular rate and rhythm without gallop. BACK: The patient's body habitus is noted for kyphosis. ABDOMEN: Her abdomen is soft and nontender, nondistended, without mass or hepatosplenomegaly. No evident ascites. EXTREMITIES: Without edema. LABORATORY STUDIES: The liver chemistries are as noted above. Today, the BUN is 11, creatinine 0.3. White count is 9000, hemoglobin 11.5, platelets 350,000, MCV 94. Ultrasound as mentioned above. ASSESSMENT AND RECOMMENDATIONS: Even though the patient's bile duct is dilated, her bilirubin is normal and there is simply no clinical evidence of any symptoms that would be consistent with biliary colic. It is possible the alkaline phosphatase is elevated based on her skeletal problems including fractures. Her bile duct could be dilated on the basis of her chronic narcotic use. I simply think that the benefit to be derived from ERCP is outweighed by the risk posed by her chronic obstructive pulmonary disease, her body habitus, etc. An MRCP is reasonable to look into the possibility of a retained common bile duct stone, which I think is unlikely, but not impossible, also to look for possibility of a biliary malignancy even though the bilirubin is normal. If an MRCP shows a compelling reason to take the risk of ERCP, then I would reconsider the possibility of ERCP for therapeutic purposes. ERCP for diagnostic purposes is not advised. I will follow with you after the MRCP has been completed and reviewed. Thank you for this consultation. JCM:lc Job ID: [id number] Doc ID: [id number] Izaiah Goodwin MD
[2016-05-19] MEDS: HEPARIN 5,000 UNIT/ML VIAL SQ SCH ×2 (09:11→21:11)
[2016-05-19] MEDS: SULFAMETHOXAZOLE/TRIMETHOPRIM 1 TABLET PO SCH ×2 (09:11→21:11)
--- NOTE | 2016-05-19 11:00 | Internal Med Progress Note ---
Medical - PN: Subj Patient information: Note initiated : 05/19/16 at 10:56 am Service Date, if different from initiated Date: [] Patient: Nayeli Del Rosario 80 y/o F admitted on 05/16/16 for Altered LOC/Sepsis, Cellulitis. Chief Complaint: [] Interval history: patient seen examined no acute overnight events She is doing well overall, the cellutlitis seems to be getting better I reviewed the labs with her, I also discussed her case with Dr Galeas the consulting GI physician. The patient LFT continue to worsen today, MRI / MRCP shows significant dilation of the hepatobiliary tract, but this has been an chr issue, likely from s/p gall bladder surgery/ use of opiates/ papillary stenosis/ no e/o stone or stricture was seen, no e/o masses seen on MRCP. The patients lft worsened while she was in the hospital, it could very well be possible that the rise in LFT is not related to the dilation of the CBD, zosyn can also cause cholestatic picture on LFT, I have stopped her zosy and vancomycin and started her on bactrim for cellutlitis. Will monitor the patients LFT and see if she continues to worsen or if she improves after cessation of the antibiotic. Will then discuss the need for ercp with GI based on her repeat LFT Pertinent ROS: Denies headache, dizziness Denies chest pain, palpitations Denies cough or shortness of breath Denies abdominal pain, nausea or vomiting. - Constitutional Vitals: Vital Signs Temp Pulse Resp BP Pulse Ox 98.6 F 92 H 16 128/60 94 05/19/16 08:00 05/19/16 08:00 05/19/16 08:00 05/19/16 08:00 05/19/16 08:00 Period Temp Pulse Resp BP Sys/Ash Pulse Ox Last 24 Hr 97.7 F-98.6 F 73-92 16-20 128-149/60-78 93-98 Intake and Output 05/18/16 05/19/16 05/19/16 21:59 05:59 13:59 Intake Total 1140 / 1140 350 / 350 480 / 480 Output Total 25 / 25 Balance 1115 / 1115 350 / 350 479 / 479 Weight 95 lb Intake & Output: Intake & Output 0105/19/16 05/19/16 21:59 05:59 13:59 Intake Total 1140 / 1140 350 / 350 480 / 480 Output Total Balance 1115 / 1115 350 / 350 479 / 479 Weight 95 lb Intake: IV 700 / 700 50 / 50 Sodium Chloride 0.9% 1, 400 / 400 000 ml @ 75 mls/hr IV . [id number] [facility] Rx#:[id number] Dextrose 5% in Water 50 50 / 50 50 / 50 ml @ 100 mls/hr IV Q6H [facility] with Zosyn 3.375 gm Rx#:[id number] Sodium Chloride 0.9% 250 250 / 250 ml @ 250 mls/hr IV Q24H [facility] with Vancomycin 1,000 mg Rx#:[id number] Oral 440 / 440 300 / 300 480 / 480 Output: Void Amount # of times incontinent of urine Other: Meal Dinner Breakfast Percent of Meal Consumed 100% 100% Feeding Ability Independent # Voids 1 1 1 # Bowel Movements 1 Exam: Constitutional; Afebrile, cooperative, alert, not in distress. Eyes- No icterus, Pupils equal, reactive, No periorbital swelling Ears- Ext ear normal, hearing normal to conversation. Neck- Midline trachea, supple Respiratory system: Air Entry equal on both sides, No crackles or wheezing, no rhonchi. CVS- Rate rhythm regular, S1,S2 heard, no gallop, no rub. Abdomen- Soft nontender abdomen, no organomegaly, no tenderness, no guarding or rigidity, PLANT [employer]- AOOx3, moving all extremities, no focal deficit noted. Extremity- mild edema+, the redness and swelling much better in the right lower extremity Medical - PN: Obj Da - Labs CBC & Chem 7: 05/19/16 03:55 05/19/16 03:55 Labs: Abnormal Lab Results 05/19/16 05/19/16 05/18/16 03:55 03:55 04:15 RBC 3.82 L Hgb 11.5 L Hct 35.8 L RDW 16.5 H MPV 7.3 L Gran % 78.6 H Lymph % (Auto) 9.1 L [place] % (Auto) 10.8 H Lymph # 0.6 L Sodium 132 L Chloride 95 L Creatinine 0.4 L 0.3 L Glucose 106 H 123 H Uric Acid 1.4 L 1.4 L Calcium 8.2 L 8.1 L GGT 301 H 305 H AST 137 H 104 H ALT 142 H 110 H Alkaline Phosphatase 345 H 371 H Total Protein 4.9 L 5.1 L Albumin 2.7 L 2.8 L 05/18/16 04:15 RBC 3.78 L Hgb 11.5 L Hct 35.5 L RDW 16.5 H MPV Gran % 78.9 H Lymph % (Auto) 12.5 L [place] % (Auto) Lymph # 1.1 L Sodium Chloride Creatinine Glucose Uric Acid Calcium GGT AST ALT Alkaline Phosphatase Total Protein Albumin Meds: Medications Acetaminophen (Tylenol) 650 mg PO Q6HP PRN PRN Reason: PAIN/FEVER > 101 Acetaminophen/Hydrocodone Bitart ([place] 7.5/325mg) 1 tab PO Q4-6HP PRN PRN Reason: Pain Last Admin: 05/19/16 02:55 Dose: 1 tab Albuterol/Ipratropium (Duoneb) 3 ml NEB PRN PRN PRN Reason: Wheezing Bisacodyl (Dulcolax) 10 mg PO DAILYP PRN PRN Reason: Constipation Calcium Carbonate/Glycine (Tums) 300 mg CHEWED TIDP PRN PRN Reason: Indigestion Last Admin: 05/17/16 12:16 Dose: 300 mg Carisoprodol (Soma) 350 mg PO TIDP PRN PRN Reason: Muscle Spasm Last Admin: 05/19/16 02:57 Dose: 350 mg Heparin Sodium (Porcine) (Heparin) 5,000 unit SQ Q12 [facility] Last Admin: 05/19/16 09:11 Dose: 5,000 unit Morphine Sulfate (Ms Contin) 60 mg PO Q8 [facility] Last Admin: 05/19/16 05:54 Dose: 60 mg Naloxone HCl (Narcan) 0.1 mg IV Q2MIN PRN PRN Reason: Opiate Reversal Ondansetron HCl (Zofran) 4 mg IV Q4HP PRN PRN Reason: Nausea And Vomiting Promethazine HCl (Phenergan) 12.5 mg IV Q6HP PRN PRN Reason: Nausea And Vomiting Senna (Senokot) 2 tab PO HSP PRN PRN Reason: Constipation Sodium Biphosphate/Sodium Phosphate (Fleets Adult) 1 dose [place] Q3DP PRN PRN Reason: Constipation Thyroid (Thyroid) 180 mg PO ACB [facility] Last Admin: 05/19/16 08:08 Dose: 180 mg Trimethoprim/Sulfamethoxazole (Bactrim Ds) 1 tab PO BID [facility] Last Admin: 05/19/16 09:11 Dose: 1 tab Medical - PN: A/P - Time Spent With Patient Total time spent is greater than 50% in coordination of care (as documented) at patient's floor/unit and/or counseling patient: (1) Cellulitis and abscess of foot excluding toe Status: Acute Assessment and plan: microbiology neg clinically improved d/c vanc and zosyn Also zosyn suspected as potential etiology for rise in LFT on bactrim po bid for now. . Current Visit: Yes (2) Chronic pain Status: Acute Assessment and plan: Has issues with using excess pain meds, son manages pain meds Will continue home dosing. Current Visit: Yes (3) Laceration Status: Acute Assessment and plan: leg wound on the left knee, healing well, not infected. Current Visit: No (4) Elevated LFTs Status: Acute Assessment and plan: elevated lft dilated cbc papillary tumor, stricture or stenosis or stone vs Medication induced MRCP did not show tumor or stone, will hold zosyn and monitor LFT Will discuss with GI regarding further steps. Current Visit: Yes Medical - PN: Qual - VTE Deep Vein Thrombosis/Pulmonary Embolism Present on Admission: No
[2016-05-19 17:12] LABS: ALT/SGPT 146 U/l (0-40); Alkaline Phosphatase 340 U/L (39-117); Bilirubin,Direct < 0.2 mg/dL (0.0-0.3)
[2016-05-20] MEDS: HYDROCODONE/APAP 7.5/325MG TABLET PO PRN ×2 (00:25→09:12)
[2016-05-20] MEDS: CARISOPRODOL 350 MG TABLET PO PRN ×2 (00:28→09:27)
[2016-05-20] MEDS: morphine 30 MG TAB.SR.12H PO SCH (05:49)
[2016-05-20 06:31] LABS: ALT/SGPT 110 U/l (0-40); Albumin/Globulin Ratio 1.4 (1.0-2.3); Alkaline Phosphatase 300 U/L (39-117); Bilirubin,Direct < 0.2 mg/dL (0.0-0.3); Blood Urea Nitrogen 8 mg/dl (8-23); Gamma Glutamyl Transpeptidase 266 U/L (5-36); Magnesium 1.7 mg/dL (1.6-2.5); Phosphorous 3.2 mg/dL (2.7-4.5)
[2016-05-20] MEDS: THYROID, PORK 60 MG TABLET PO SCH (06:53)
[2016-05-20] MEDS ORDERED: POTASSIUM CHLORIDE 20 MEQ PACKET PO ONE (07:43)
[2016-05-20] MEDS: HEPARIN 5,000 UNIT/ML VIAL SQ SCH (08:17)
[2016-05-20] MEDS: SULFAMETHOXAZOLE/TRIMETHOPRIM 1 TABLET PO SCH (08:23)
--- NOTE | 2016-05-20 10:18 | Discharge Summary ---
Medical - DS: Prov Patient information: Note initiated : 05/20/16 at 10:14 am Service Date, if different from initiated Date: [] Patient: Nayeli Del Rosario 80 y/o F admitted on 05/16/16 for Altered LOC/Sepsis, Cellulitis. Chief Complaint: [] Date of admission: 05/16/16 20:19 Discharge date: 05/20/16 Primary care physician: [f_Reg Prim Care Provider] Admitting clinician: Adam Wilder Consults: 05/18/16 10:56 Consult to Physician [CONS] Routine Comment: Dialated cbd, abnl LFT. Consulting Provider: Izaiah Gonzales Reason For Exam: Physician to Consult Discharging clinician: Adam Wilder Medical - DS: Meds - Discharge Medications Prescriptions: Sulfamethoxazole/Trimethoprim [Bactrim Ds] 1 tab PO BID #14 tablet Active and Home Medications: Home Medications Carisoprodol [Soma] 350 mg PO TID 05/17/16 [History Confirmed 05/17/16 Last Taken 05/16/16] Furosemide [Lasix] 20 mg PO DAILY 05/17/16 [History Confirmed 05/17/16 Last Taken 05/16/16] Hydrochlorothiazide [Oretic] 25 mg PO DAILY 05/17/16 [History Confirmed Last Taken 05/16/16] LORazepam [Ativan] 1 mg PO Q8 PRN 05/17/16 [History Confirmed 05/17/16 Last Taken 05/16/16] Active Medications Acetaminophen (Tylenol) 650 mg PO Q6HP PRN PRN Reason: PAIN/FEVER > 101 Acetaminophen/Hydrocodone Bitart ([place] 7.5/325mg) 1 tab PO Q4-6HP PRN PRN Reason: Pain Last Admin: 05/20/16 09:12 Dose: 1 tab Albuterol/Ipratropium (Duoneb) 3 ml NEB PRN PRN PRN Reason: Wheezing Last Admin: 05/19/16 14:26 Dose: 3 ml Bisacodyl (Dulcolax) 10 mg PO DAILYP PRN PRN Reason: Constipation Calcium Carbonate/Glycine (Tums) 300 mg CHEWED TIDP PRN PRN Reason: Indigestion Last Admin: 05/17/16 12:16 Dose: 300 mg Carisoprodol (Soma) 350 mg PO TIDP PRN PRN Reason: Muscle Spasm Last Admin: 05/20/16 09:27 Dose: 350 mg Heparin Sodium (Porcine) (Heparin) 5,000 unit SQ Q12 [facility] Last Admin: 05/20/16 08:17 Dose: 5,000 unit Morphine Sulfate (Ms Contin) 60 mg PO Q8 [facility] Last Admin: 05/20/16 05:49 Dose: 60 mg Naloxone HCl (Narcan) 0.1 mg IV Q2MIN PRN PRN Reason: Opiate Reversal Ondansetron HCl (Zofran) 4 mg IV Q4HP PRN PRN Reason: Nausea And Vomiting Promethazine HCl (Phenergan) 12.5 mg IV Q6HP PRN PRN Reason: Nausea And Vomiting Senna (Senokot) 2 tab PO HSP PRN PRN Reason: Constipation Sodium Biphosphate/Sodium Phosphate (Fleets Adult) 1 dose LA Q3DP PRN PRN Reason: Constipation Thyroid (Thyroid) 180 mg PO ACB [facility] Last Admin: 05/20/16 06:53 Dose: 180 mg Trimethoprim/Sulfamethoxazole (Bactrim Ds) 1 tab PO BID [facility] Last Admin: 05/20/16 08:23 Dose: 1 tab Medical - DS: Hosp Hospital course: Mr. Del Rosario is a 80 year old female presented to the ER with not feeling well, Altered mental status, and dehydration In the ER she was noted to have cellulitis of the right lower extremity, She was started on IV vancomycin and zosy, which improved her condition, She responded to IV fluids and antibiotics and was back to her baseline status. The during this hospital stay unfortunately developed worsening of her liver function test, the patients USG liver showed dilated CBD, MRCP was done which confirmed same, but did not reveal any stone or stricture. 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 The patient risking lft was thought to be due to use of Zosyn rather than hepatobiliary process. Zosyn was stopped and the patients LFT started to trend dowwards. The patient will benefit from a repeat LFT done by per pcp in 4-8 weeks to ensure that it returns back to baseline. NO intervention is warranted at this time as per Dr Galeas. The patient's son was concerned regarding the patients disposition, the patient however wanted to go home her niece would be coming over to help her and we will set up home health and home OT/ PT for the patient, patient son is agreeable with the plan Discharge diagnosis: Cellulitits, dehydration, - Time Spent with Patient Total time spent providing and/or coordinating discharge services: Greater than 30 minutes Medical - DS: Exam - Constitutional Vitals: Vital Signs Temp Pulse Pulse Pulse Resp BP BP 05/20/16 09:39 78 78 05/20/16 07:50 98.8 F 76 16 118/72 05/20/16 04:00 98.0 F 82 18 140/60 05/20/16 01:30 99.1 F 88 24 159/75 05/19/16 18:58 98.6 F 80 20 128/52 05/19/16 16:02 05/19/16 15:48 98.3 F 88 16 149/74 05/19/16 14:26 86 18 05/19/16 12:51 98.3 F 91 H 16 117/64 Pulse Ox 05/20/16 09:39 05/20/16 07:50 98 05/20/16 04:00 05/20/16 01:30 95 05/19/16 18:58 05/19/16 16:02 93 05/19/16 15:48 96 05/19/16 14:26 05/19/16 12:51 95 Intake and Output 05/19/16 05/20/16 05/20/16 21:59 05:59 13:59 Intake Total 640 / 640 Output Total 300 / 300 200 / 200 Balance 340 / 340 -200 / -200 Intake: Oral 640 / 640 Output: Void Amount 300 / 300 200 / 200 Other: # Voids 2 2 # Bowel Movements 1 1 1 Weight 101 lb 8 oz Additional comments: Constitutional; Afebrile, cooperative, alert, not in distress. Eyes- No icterus, Pupils equal, reactive, No periorbital swelling Ears- Ext ear normal, hearing normal to conversation. Neck- Midline trachea, supple Respiratory system: Air Entry equal on both sides, No crackles or wheezing, no rhonchi. CVS- Rate rhythm regular, S1,S2 heard, no gallop, no rub. Abdomen- Soft nontender abdomen, no organomegaly, no tenderness, no guarding or rigidity, [employer]- AOOx3, moving all extremities, no focal deficit noted. Medical - DS: Data Labs on day of discharge: Labs from last 24 hours 05/20/16 05/19/16 05/19/16 05:05 16:18 10:58 Sodium 137 Potassium 3.2 L Chloride 96 Carbon Dioxide 32 H Anion Gap 9.0 BUN 8 Creatinine 0.3 L GFR Calculation 110 Glucose 93 Uric Acid 2.0 L Calcium 8.4 L Phosphorus 3.2 Magnesium 1.7 Total Bilirubin 0.3 0.4 Direct Bilirubin < 0.2 < 0.2 GGT 266 H AST 55 H 95 H ALT 110 H 146 H Alkaline Phosphatase 300 H 340 H Lactate Dehydrogenase 130 Total Protein 5.1 L 5.3 L Albumin 3.0 L 3.0 L Globulin 2.1 L 2.3 Albumin/Globulin Ratio 1.4 Triglycerides 48 Vancomycin Trough 6.3 Preliminary micro results at discharge 05/19/16 16:38 Sputum Culture - Preliminary Sputum - Expectorated Medical - DS: A/P - Patient/Caregiver Discharge Instructions Activity: increase activity as tolerated Diet: Regular Diet Additional Instructions: Follow up with your PCP in 1-2 weeks Take bactrim x 7 days Go to the ER if worsening condition or new symptoms. Prescriptions: Sulfamethoxazole/Trimethoprim [Bactrim Ds] 1 tab PO BID #14 tablet - Problem Maintenance (1) Cellulitis and abscess of foot excluding toe Status: Acute (2) Chronic pain Status: Acute (3) Laceration Status: Acute (4) Elevated LFTs Status: Acute - Follow up Plan Follow up with: Lito Goodwin MD [Primary Care Provider] - Disposition: Home Health Service Prognosis: Fair Rehab Potential: Fair I certify that the patient requires SNF services: No Overall status at discharge: patient is progressing back to baseline Medical - DS: Qual - VTE Deep Vein Thrombosis/Pulmonary Embolism Present on Admission: No
== END 2016-05-20 13:20 | disposition home health service (06) | DRG 871 ==
LOC: ED 14:37 → ICU 20:19 → MEDSUR 05-17 15:50
PROVIDERS: ADMIT Internal Medicine; ATTEND Internal Medicine